=== PATIENT | male | born 1960 | race Caucasian/White ===

== ENCOUNTER 2016-06-03 12:01 | Day surgery (SDC) ==
[2016-06-03] MEDS ORDERED: LR 1,000 ML ONE (12:26)
[2016-06-03] MEDS ORDERED: KEFZOL 2 GM/D5W 50 ML ONE (12:26)
[2016-06-03] MEDS ORDERED: REGLAN ONE (15:02)
[2016-06-03] MEDS ORDERED: PEPCID ONE (15:02)
[2016-06-03] MEDS ORDERED: ZOFRAN IV PRN (17:32)
[2016-06-03 18:05] VITALS: BP 128/75
--- NOTE | 2016-06-03 18:37 | OPERATIVE NOTE ---
PROCEDURE DATE: 06/03/2016 PREOPERATIVE DIAGNOSIS: Posterior neck abscess. POSTOPERATIVE DIAGNOSIS: Posterior neck abscess. PROCEDURE PERFORMED: Excision and drainage of posterior neck abscess. ESTIMATED BLOOD LOSS: 5 mL. SPECIMENS: Cultures from the abscessed cavity. OPERATIVE INDICATIONS: A 55-year-old male whose has had a 1-week history of pain and swelling of the posterior neck consistent with an abscess. Incision and drainage is indicated. OPERATIVE FINDINGS: There was approximately a 3 cm cavity in the posterior neck with purulent material here. No significant necrotic tissue. OPERATIVE NOTE: The risks, benefits, and alternatives of the case were discussed with the patient. He consented to the procedure. He was seen in the preoperative area, and the surgery to be performed was confirmed. He was taken to the operating room and placed in the supine position. General anesthesia was induced without complication. His right neck and posterior neck was prepped with Betadine and draped in the usual fashion. A time-out was performed between nursing, surgical, and anesthesia staff. Preincisional antibiotics were administered. A longitudinal incision was made over the are of the most fluctuance and the cavity was entered, and a large amount of pus was noted. Loculations were disrupted. The incision was made large enough to facilitate ongoing drainage. The wound was irrigated and hemostasis confirmed. It was packed with half-inch iodoform gauze, and a gauze dressing was applied. He tolerated the procedure well. There was no identified complication. All sponge, instrument, and needle counts were correct x2. He has woken and transferred to the PACU in good condition.
[2016-06-03] MEDS ORDERED: DIPRIVAN 1% ONE (19:05)
[2016-06-04] MEDS ORDERED: ZOFRAN ONE (09:19)
[2016-06-04] MEDS ORDERED: LR 1,000 ML ONE (09:19)
[2016-06-04] MEDS ORDERED: XYLOCAINE-MPF 2% ONE (09:19)
[2016-06-04] MEDS ORDERED: TORADOL ONE (09:19)
== END 2016-06-03 18:02 | disposition home or self-care (01) ==
LOC: OR 12:01
PROVIDERS: ATTEND Surgery
DX: L02.11 Cutaneous abscess of neck (principal)
CPT/HCPCS: 87070; 87075; 87077; 87186; 87205; J0690; J1885; J2405; J7120